=== PATIENT | female | born 1945 | race African-American/Black ===

== ENCOUNTER 2024-08-14 13:25 | Inpatient (IN) | payer MEDICARE, BC ==
[2024-08-14 14:17] LABS: #Basophils Less than 0.03 10x3/uL (0.0-0.2); %Basophils 0.3 % (0.0-1.0); %Eosinophils 2.7 % (0.0-10.0); %Lymphocytes 26.3 % (21.0-51.0); %Monocytes 8.5 % (0.0-10.0); Hematocrit 39.4 % (36.0-47.0); Hemoglobin 12.4 g/dL (12.0-16.0); Mean Corpuscular HGB CONC 31.5 g/dL (32.0-36.0); Mean Corpuscular Volume 95.4 fL (78.0-98.0); Platelet Count 206 10x3/uL (130-400); RBC Distribution Width 12.9 % (11.5-14.5); Red Blood Cell (RBC) Count 4.13 mill/uL (4.20-5.40)
[2024-08-14 14:33] LABS: ALT (SGPT) 13 U/L (8-55); AST (SGOT) 18 U/L (5-34); Acetaminophen Less than 10 mcg/mL (Less than 10); Albumin 3.7 g/dL (3.4-4.8); Alcohol Less than 10.0 mg/dL (Less than 10); Alkaline Phosphatase 130 U/L (40-110); Anion Gap 13 mmol/L (10-20); BUN (Urea Nitrogen) 23 mg/dL (9.8-20.1); Bilirubin, Total 0.2 mg/dL (0.2-1.2); Calc. Creatinine Clearance 0 mL/min (70-130); Calcium 9.4 mg/dL (7.8-10.44); Carbon Dioxide 25 mmol/L (23-31); Chloride 103 mmol/L (98-107); Estimated GFR 37; Globulin 4.3 g/dL (2.4-3.5); Glucose 174 mg/dL (83-110); Potassium 4.2 mmol/L (3.5-5.1); Salicylate Less than 8.0 mg/dL (Less than 8.0); Sodium 137 mmol/L (136-145)
[2024-08-14 14:37] LABS: Troponin I Less than 0.010 ng/mL (< 0.028)
[2024-08-14 15:18] LABS: Bacteria/HPF None Seen HPF (None Seen); Bilirubin Negative (Negative); Blood, Urine Negative (Negative); CAUTI Indications for Culture Alt mental st,lethar; Clarity Clear (Clear); Glucose, Urine (Dipstick) 50 mg/dL (Negative); Ketone, Urine Negative (Negative); Leukocyte 25 Leu/uL (Negative); Nitrite Negative (Negative); Protein, Urine (Dipstick) Negative (Neg-Trace); RBC/HPF 0-3 HPF (0-3); Specific Gravity, Urine 1.006 (1.002-1.036); Squamous Epithelial 0-3 HPF (0-3); Urobilinogen Normal mg/dL (Less than 2); WBC/HPF None Seen HPF (0-3)
[2024-08-14 15:20] LABS: Urine Culture Reflex No No
[2024-08-14 15:24] LABS: Amphetamine Not Detected (NotDetected); Barbiturates Screen Not Detected (NotDetected); Benzodiazepine Screen Not Detected (NotDetected); Cocaine Metabolite Screen Not Detected (NotDetected); Methadone Not Detected (NotDetected); Methamphetamine Not Detected (NotDetected); Opiate Screen Not Detected (NotDetected); Oxycodone Screen Not Detected (NotDetected); Phencyclidine (PCP) Not Detected (NotDetected); THC/Cannabinoid Screen Not Detected (NotDetected); Tricyclic Screen Not Detected (NotDetected)
[2024-08-14] MEDS ORDERED: Acetaminophen 325 MG TAB PO PRN (15:40)
[2024-08-14] MEDS ORDERED: Ondansetron PF 4 MG/2 ML Vial IVP PRN (15:40)
[2024-08-14] MEDS ORDERED: levETIRAcetam 500 MG (5 mL) VIAL ONE (16:18)
[2024-08-14] MEDS ORDERED: Sterile Water 10 ML ONE (17:54)
[2024-08-14] MEDS ORDERED: OLANZapine 10 MG VIAL IM ONE (17:54)
[2024-08-14] MEDS ORDERED: OLANZapine 10 MG VIAL IM SCH (18:00)
[2024-08-14] MEDS: levETIRAcetam 500 MG (5 mL) VIAL SLOW IVP SCH ×2 (20:00→20:39)
[2024-08-14] MEDS: Sterile Water 10 ML VIAL FS SCH (20:38)
[2024-08-14] MEDS: Enoxaparin 30 MG (0.3 mL) SYRINGE SC SCH (20:39)
[2024-08-14] MEDS: OLANZapine 10 MG VIAL IM SCH (20:39)
[2024-08-14] MEDS: hydrALAZINE 20 MG/ML VIAL SLOW IVP PRN (22:29)
[2024-08-15] MEDS: Haloperidol Lactate 5 MG/ML VIAL IM SCH (00:18)
[2024-08-15] MEDS: Labetalol HCl 100 MG/20 ML VIAL SLOW IVP PRN (01:38)
[2024-08-15 06:04] LABS: #Basophils Less than 0.03 10x3/uL (0.0-0.2); #Eosinophils Less than 0.03 10x3/uL (0.0-0.7); %Basophils 0.1 % (0.0-1.0); %Lymphocytes 7.2 % (21.0-51.0); %Monocytes 5.6 % (0.0-10.0); %Neutrophils 86.6 % (42.0-75.0); Hematocrit 38.7 % (36.0-47.0); Hemoglobin 12.4 g/dL (12.0-16.0); Mean Corpuscular Hemoglobin 30.5 pg (27.0-31.0); Mean Corpuscular Volume 95.1 fL (78.0-98.0); Mean Platelet Volume 10.7 fL (7.4-10.4); Platelet Count 189 10x3/uL (130-400); Red Blood Cell (RBC) Count 4.07 mill/uL (4.20-5.40)
[2024-08-15 06:45] LABS: Anion Gap 18 mmol/L (10-20); BUN (Urea Nitrogen) 18 mg/dL (9.8-20.1); Calc. Creatinine Clearance 0 mL/min (70-130); Calcium 9.3 mg/dL (7.8-10.44); Carbon Dioxide 21 mmol/L (23-31); Chloride 107 mmol/L (98-107); Estimated GFR 55; Glucose 153 mg/dL (83-110); Magnesium 1.9 mg/dL (1.6-2.6); Potassium 3.6 mmol/L (3.5-5.1); Sodium 142 mmol/L (136-145)
[2024-08-15 07:24] VITALS: BMI 30.2
[2024-08-15] MEDS: Enoxaparin 30 MG (0.3 mL) SYRINGE SC SCH (10:30)
[2024-08-15] MEDS: Lorazepam 2 MG/ML VIAL SLOW IVP PRN (11:30)
[2024-08-15] MEDS: FLU (Fluad Triv) TS24-25 (65UP)/MF59C/PF 45 MCG/0.5 ML Syringe IM ONE (15:04)
[2024-08-15] MEDS: Sodium Chloride 0.9% 1,000 ML IV SCH (20:27)
[2024-08-16] MEDS ORDERED: Tamsulosin HCl 0.4 MG CAP ONE (16:46)
[2024-08-16] MEDS ORDERED: NIFEdipine XL 90 MG ER.TAB ONE (16:46)
[2024-08-17] MEDS: Enoxaparin 40 MG (0.4 mL) SYRINGE ONE (19:02)
[2024-08-18] MEDS ORDERED: NIFEdipine XL 90 MG ER.TAB PO SCH (09:00)
[2024-08-18 10:04] LABS: Anion Gap 13 mmol/L (10-20); BUN (Urea Nitrogen) 14 mg/dL (9.8-20.1); Calc. Creatinine Clearance 55 mL/min (70-130); Calcium 8.8 mg/dL (7.8-10.44); Carbon Dioxide 21 mmol/L (23-31); Chloride 115 mmol/L (98-107); Estimated GFR 55; Glucose 106 mg/dL (83-110); Potassium 3.4 mmol/L (3.5-5.1); Sodium 146 mmol/L (136-145)
[2024-08-18 12:17] VITALS: BMI 30.2
[2024-08-18] MEDS: Isosorbide Dinitrate 5 MG TAB PO SCH (15:43)
[2024-08-18] MEDS: hydrALAZINE 25 MG TAB PO SCH ×2 (15:43→20:32)
[2024-08-18] MEDS: Amlodipine 10 MG TAB PO SCH (15:44)
[2024-08-18] MEDS: Losartan 25 MG TAB PO SCH (19:47)
[2024-08-18] MEDS: Enoxaparin 40 MG (0.4 mL) SYRINGE ONE (19:47)
[2024-08-18] MEDS: Aspirin 81 mg Enteric Coated Tablet PO SCH (19:47)
[2024-08-18] MEDS: Tamsulosin HCl 0.4 MG CAP PO SCH (19:47)
[2024-08-18] MEDS: Atorvastatin Calcium 20 MG TAB PO SCH (20:31)
[2024-08-18] MEDS: Isosorbide Dinitrate 20 MG TAB PO SCH (20:31)
[2024-08-18] MEDS: levETIRAcetam 500 MG TAB PO SCH (20:32)
[2024-08-18 21:49] VITALS: BP 127/65; TEMP 96.9
[2024-08-19] MEDS ORDERED: Amlodipine 10 MG TAB PO SCH (09:00)
== END 2024-08-18 21:58 | DRG 101 ==
LOC: ERS 13:25 → SUATTDRO 13:25 → IMCU/EMU 15:26 → 2SE 08-15 17:15
PROVIDERS: ADMIT Internal Medicine; ATTEND Internal Medicine
PROC: XX20X89 Monitoring of Brain Electrical Activity, Computer-aided Detection and Notification, New Technology Group 9 (ICD-10-PCS; principal; 2024-08-14)
PROC: XX20X89 Monitoring of Brain Electrical Activity, Computer-aided Detection and Notification, New Technology Group 9 (ICD-10-PCS; 2024-08-17)
DX: G40.909 Epilepsy, unspecified, not intractable, without status epilepticus (principal); N17.9 Acute kidney failure, unspecified; G30.9 Alzheimer's disease, unspecified; F02.80 Dementia in other diseases classified elsewhere, unspecified severity, without behavioral disturbance, psychotic disturbance, mood disturbance, and anxiety; F41.9 Anxiety disorder, unspecified; F32.A Depression, unspecified; E11.22 Type 2 diabetes mellitus with diabetic chronic kidney disease; I12.9 Hypertensive chronic kidney disease with stage 1 through stage 4 chronic kidney disease, or unspecified chronic kidney disease; Z85.3 Personal history of malignant neoplasm of breast; Z87.891 Personal history of nicotine dependence; Z86.73 Personal history of transient ischemic attack (TIA), and cerebral infarction without residual deficits
CPT/HCPCS: 36415; 36416; 51701; 70450; 70496; 70498; 70544; 70549; 70553; 76376; 80048; 80053; 80306; 80307; 81001; 83735; 84484; 85025; 93005; 94760; 95816; 96372; 96374; J0360; J1630; J1650; J1953; J2060; J7030